=== PATIENT | male | born 1980 | race American Indian/Alaskan Native ===

== ENCOUNTER 2019-08-20 07:12 | Outpatient (CLI) | payer SELFPAY ==
[2019-08-20 08:17] LABS: Blood Urea Nitrogen 16 mg/dL (9-20)
--- NOTE | 2019-08-20 10:03 | Cat Scan Report ---
CTA CHEST WITH IV CONTRAST INDICATION: R06.02 SHORTNESS OF BREATH. TECHNIQUE: Axial CT images were obtained through the chest after injection of IV contrast. 3 plane MIP reconstru ctions were produced. All CT scans at this location are performed using CT dose reduction for ALARA b y means of automated exposure control. COMPARISON: None available. FINDINGS: Pulmonary Arteries: No pulmonary emboli. Thoracic Aorta: No acute abnormality. Heart: Normal. Lungs: Emphysematous changes are noted with subpleural blebs, greatest within the lower lobes. No con solidation is seen. Pleura: No pleural effusion. No pneumothorax. Lymph Nodes: No significant adenopathy. Additional Findings: None. Upper Abdomen: No acute findings. Skeletal Structures: No significant osseous abnormality. IMPRESSION: 1. No CT evidence for pulmonary embolism. 2. Emphysematous changes are noted with extensive subpleural blebs, greatest in the lower lobes. Signer Name: Amrit Waters MD Signed: 08/20/2019 9:58 AM Workstation Name: [id number]
== END 2019-08-20 07:13 | disposition home or self-care (01) ==
LOC: CT 07:12
PROVIDERS: ATTEND Internal Medicine
DX: J43.9 Emphysema, unspecified (principal)
CPT/HCPCS: 36415; 71275; 82565; 84520; Q9967